=== PATIENT | female | born 1930 | race Caucasian/White ===

== ENCOUNTER 2019-11-24 22:10 | Inpatient (IN) | payer MEDICARE ==
[~2019-11-24] VITALS: Ht 167.6 cm; Wt 54.0 kg
--- NOTE | 2019-11-24 22:20 | NUR ---
Pt ABHAY mares from [facility]. Pt is here for medical clearance prior to MHU admission. She is on a 5150 hold for being DTS. Per reports, pt tried to overdose on pills and posted notes in her assisted living unit stating that she wants to . Pt is AO x 3-4. Verbally responsive and cooperative. Calm behavior. Denies suicidal and homicidal ideation at this time. She states that she only felt that way because her knee operation kept getting postponed and her knee pain gets worse. Respirations are even and unlabored. No signs of distress. Denies chest pain or any other discomfort at this time. Bed kept locked in place. Side rails up x 2. Removed belongings outside of room. Safety precautions maintained.
[2019-11-24] MEDS ORDERED: AMLODIPINE 5 MG TABLET ONE (22:27)
--- NOTE | 2019-11-24 22:29 | NUR ---
Called [facility] and spoke to Lizbeth staff member who states she has no medication on file.
[2019-11-24] MEDS ORDERED: AMLODIPINE 5 MG TABLET PO ONE (22:30)
--- NOTE | 2019-11-24 23:00 | NUR ---
Pt. admitted to MHU , under care of Dr. Vance/Shabbir Murphy DNP. Called for report at 2250 to Nerissa RN. Transported at this time via stretcher. Belonging List completed, and handed over to receiving RN. Warm handoff to MHU RNs.
--- NOTE | 2019-11-24 23:01 | NUR ---
ADMISSION NOTE: PATIENT IS A 89 YEAR OLD FEMALE BROUGHT IN ON 5150 FOR SI. UNDER THE CARE OF DR. MIRANDA AND DR. REBECA KOHLI. DX: IS MAJOR DEPRESSION. PER HOLD, PT STATED SHE WANTED TO "END IT ALL" BECAUSE THE PAIN IN HER KNEE. SHE ADMITTED TO TAKING MELATONIN TO SLEEP AND NOT WAKE UP. PT STATED THAT "SHE WANT TO ." AND PUT SUICIDE NOTES HANGING IN HER RESIDENCE THAT SAID" DO NOT TRY TO REVIVE ME." UPON FACE TO FACE EVALUATION PT SHOWS DEPRESSION, RESTLESS AND AGITATION BUT CAN FOLLOW COMMANDS. NO SUICIDAL IDEATION . PT DENIES THAT SHE'S SUICIDAL. PT WAS GIVEN ADVISEMENT, PATIENT'S RIGHT HANDBOOK GIVEN AND ORIENTED TO THE UNIT. FOOD PROVIDED. VITAL SIGNS WITHIN NORMAL LIMIT. SENIOR CARE ASSESSMENT DONE. MONITORING CLOSELY FOR SI. SUICIDAL PREVENTION AND STRATEGIES IN PLACE. SAFETY AND COMFORT PROVIDED.
[2019-11-24 23:05] VITALS: BP 174/73
[2019-11-24] MEDS ORDERED: hydrALAZINE HCL 25 MG TABLET PO ONE (23:45)
[2019-11-25] MEDS ORDERED: MAGNESIUM HYDROXIDE 30 ML LIQUID UDC PO PRN (00:15)
[2019-11-25] MEDS ORDERED: hydrALAZINE HCL 10 MG TABLET ONE (00:15)
[2019-11-25] MEDS ORDERED: BLOOD SUGAR DIAGNOSTIC 1 EACH STRIP VI ONE (00:15)
[2019-11-25] MEDS ORDERED: LORAZEPAM 1 MG TABLET PO PRN ×2 (00:15→14:30)
[2019-11-25 01:30] VITALS: BP 158/65
--- NOTE | 2019-11-25 06:04 | NUR ---
PT SLEPT 3 HOURS. PT IN NO ACUTE DISTRESS. PRESCRIBED MEDICATION GIVEN AND PT TOLERATED IT WELL. PT ANXIOUS, RESTLESS AND DEPRESSED BUT CAN FOLLOW COMMANDS. PT REFUSED TO HAVE HER BLOOD SUGAR CHECK AT 0015H. PT COMPLAINING OF ROOM TOO COLD. GAVE WARM BLANKET AND PUT THE TEMPERATURE WARM BUT STILL PT SAID ITS COLD. CHARGE NURSE AWARE. SAFETY AND COMFORT PROVIDED. ALL NEEDS ARE MET. WILL ENDORSE TO INCOMING NURSE FOR CONTINUITY OF CARE.
[2019-11-25 07:30] VITALS: BP 145/57
[2019-11-25] MEDS: ACETAMINOPHEN 325 MG TABLET PO PRN (10:09)
--- NOTE | 2019-11-25 10:25 | NUR ---
Social Work Initial Discharge Note: Patient currently resides at [facility] at [address] [place] [address] Dr Bharat Schultz, [place] [address] ([phone]), ([phone]), ([phone]). Per patient, she would want to return back to her [facility]. milk house worker spoke with afianmsanti nurse ([phone]) who stated that patient is welcomed back upon discharge. milk house worker will work with the pt and the MD regarding appropriate discharge planning. milk house worker will form a safe and proper discharge plan.
--- NOTE | 2019-11-25 10:25 | NUR ---
Social Work Family Contact: plate put in worker contacted patient's son Tommie ([phone]) was unavailable to gather collateral. This customs entry writer left a voicemail for Tommie to call back.
[2019-11-25] MEDS: IBUPROFEN 600 MG TABLET PO PRN (14:31)
[2019-11-25 16:00] VITALS: BP 155/69
--- NOTE | 2019-11-25 18:03 | NUR ---
Received patient this am in bed. Awake and alert, but disoriented. Explained the situation and the plan multiple times during the shift. Patient noted to be very forgetful. Asking the same questions over and over. Patient denies SI and does not know why she was brought here. A moderate amount of anxiety noted, which patient was medicated for with little effect. Patients B/P noted slightly elevate. SCRAP BALLER Ana was made aware early in the shift, but no orders received. Continuing to reorient patient, monitor for safety, provide reassurance and medicate if needed.
[2019-11-25 20:05] VITALS: BP 159/66
[2019-11-25] MEDS: ATORVASTATIN 40 MG TABLET PO SCH (20:16)
[2019-11-25] MEDS: MIRTAZAPINE 15 MG TABLET PO SCH (20:16)
[2019-11-26 07:30] VITALS: BP 122/64
--- NOTE | 2019-11-26 08:43 | NUR ---
Social Work Note: This commercial underwriter contacted [facility] and contacted Lizette who is the charge nurse ([phone]) and left a voicemail for Lizette to contact this commercial underwriter. This commercial underwriter was notified that Lizette contacted nursing staff to speak to social science research assistant to plan for discharge upon her discharge.
[2019-11-26] MEDS: ASPIRIN 81 MG TAB.CHEW PO SCH (09:32)
--- NOTE | 2019-11-26 11:29 | NUR ---
Social Work Family Contact: This policy writer contacted patient's son Tommie ([phone]) had left this policy writer a voicemail. This policy writer attempted to contact him back but was unavailable. This policy writer left a voicemail to call back soon.
--- NOTE | 2019-11-26 15:35 | NUR ---
Social Work Individual Therapy: steamtable worker met with patient for brief counseling. steamtable worker assessed for patient's level of suicidality. Patient denies SI. Patient reports that prior to admission, what she did was "stupid" and that she "regrets it". Patient reports that at her facility she has a strong support system and that she has "lots of friends" who she interacts with. Patient reports that even though the hospital has been helpful she misses her intermediate and wants to go back. This feature writer encouraged patient to interact with peers here and to participate in group. Patient was able to comprehend. This feature writer actively listened and provided emotional support. This feature writer also encouraged patient to alert either this feature writer or the nursing staff.
[2019-11-26 16:05] VITALS: BP 159/68
[2019-11-26] MEDS: MIRTAZAPINE 15 MG TABLET PO SCH (20:00)
[2019-11-26] MEDS: ATORVASTATIN 40 MG TABLET PO SCH (20:00)
[2019-11-26] MEDS: MAG HYDROX/AL HYDROX/SIMETH 30 ML LIQUID UDC PO PRN (20:00)
[2019-11-26 20:06] VITALS: BP 112/64
--- NOTE | 2019-11-27 01:15 | NUR ---
Patient received in room awake. patient is calm, cooperative and withdrawn. Patient complaint with medication. Patient denies SI will continue to monitor. Safe environment provided, frequent rounding, and clutter free environment. Bed in lowest position, bed locked,and bed alarm on while in bed.
[2019-11-27 07:30] VITALS: BP 156/58
[2019-11-27] MEDS: ASPIRIN 81 MG TAB.CHEW PO SCH (09:29)
[2019-11-27] MEDS: IBUPROFEN 600 MG TABLET PO PRN (09:29)
--- NOTE | 2019-11-27 14:30 | NUR ---
Gps/Press Tender Short Goods- Interacting fairly well with her roommate. Encouraged to attend her group therapy. Patient was able to talked to Dr Vance, questioning her discharge plan, will reassess patient behavior.
[2019-11-27 16:00] VITALS: BP 145/67
[2019-11-27] MEDS: ACETAMINOPHEN 325 MG TABLET PO PRN (17:10)
[2019-11-27 20:00] VITALS: BP 114/51
[2019-11-27] MEDS: ATORVASTATIN 40 MG TABLET PO SCH (20:24)
[2019-11-27] MEDS: MIRTAZAPINE 15 MG TABLET PO SCH (20:25)
[2019-11-27] MEDS: LORAZEPAM 0.5 MG TABLET PO PRN (20:57)
[2019-11-28 07:30] VITALS: BP 136/60
[2019-11-28] MEDS: ASPIRIN 81 MG TAB.CHEW PO SCH (09:22)
--- NOTE | 2019-11-28 15:37 | NUR ---
Social Work Individual Therapy: construction ironworker helper met with patient for brief counseling. construction ironworker helper assessed for patient's level of suicidality. Patient denies SI. Patient reports that she becomes sad "sometimes" because she stated that her daughter . Patient did not share more information in regard to her daughter. Patient became tearful when she began to share about her daughter. Patient reported that now her son Tommie has been involved in her care and has been supportive. This com writer encouraged patient to speak to his son daily. This com writer actively listened and provided emotional support.
[2019-11-28 15:48] VITALS: BP 163/69
[2019-11-28] MEDS: BISACODYL 10 MG SUPP.RECT RC PRN (17:05)
[2019-11-28 20:00] VITALS: BP 154/61
[2019-11-28] MEDS: ATORVASTATIN 40 MG TABLET PO SCH (20:40)
[2019-11-28] MEDS: MIRTAZAPINE 15 MG TABLET PO SCH (20:40)
[2019-11-28] MEDS: ZOLPIDEM 5 MG TABLET PO PRN (22:12)
[2019-11-29 07:30] VITALS: BP_SYST 108; BP_SYST 123; BP_DIAS 59; BP_DIAS 72
[2019-11-29] MEDS: ASPIRIN 81 MG TAB.CHEW PO SCH (08:21)
--- NOTE | 2019-11-29 13:40 | NUR ---
Gps/Steam Trap Worker- Making her needs known, pleasant affect, interacting with her roommate, denies pain no discomfort noted at this time. reviewed safety. Patient looking forward [facility] .
[2019-11-29 16:00] VITALS: BP 154/51
[2019-11-29] MEDS: ACETAMINOPHEN 325 MG TABLET PO PRN (16:10)
[2019-11-29] MEDS: ATORVASTATIN 40 MG TABLET PO SCH (20:46)
[2019-11-29] MEDS: MIRTAZAPINE 15 MG TABLET PO SCH (20:46)
[2019-11-29 21:32] VITALS: BP 148/66
--- NOTE | 2019-11-30 00:22 | NUR ---
RECEIVED PATIENT IN HER ROOM CHATTING WITH HER ROOMMATE.DENIES SI/HI.SHE IS MEDICATION COMPLIANT. SAFE ENVIRONMENT PROVIDED. VISUAL CHECKS MADE ON HER. WILL CONTINUE TO MONITOR.
[2019-11-30 07:30] VITALS: BP 151/70
[2019-11-30] MEDS: ASPIRIN 81 MG TAB.CHEW PO SCH (08:49)
[2019-11-30] MEDS: ACETAMINOPHEN 325 MG TABLET PO PRN (10:29)
[2019-11-30 16:00] VITALS: BP 124/58
--- NOTE | 2019-11-30 16:50 | NUR ---
Gps/Battery Engineer- Continue to make needs known, interacting well with her peers. Adequate relief from headache . Verbalized she is looking forward to going back to her apt. longterm .
[2019-11-30 20:00] VITALS: BP 131/56
[2019-11-30] MEDS: MIRTAZAPINE 15 MG TABLET PO SCH (20:59)
[2019-11-30] MEDS: ATORVASTATIN 40 MG TABLET PO SCH (20:59)
--- NOTE | 2019-12-01 00:08 | NUR ---
RECEIVED PATIENT IN ACTIVITY ROOM.DENIES SI/HI. SHE IS MEDICATION COMPLIANT BUT MILDLY SUSPICIOUS OF HER MEDICATION. SAFE ENVIRONMENT PROVIDED. VISUAL CHECKS MADE ON HER. WILL CONTINUE TO MONITOR.
--- NOTE | 2019-12-01 06:45 | NUR ---
SLEPT FOR APPROX 07:30 HOURS
[2019-12-01 07:30] VITALS: BP 129/58
[2019-12-01] MEDS: ASPIRIN 81 MG TAB.CHEW PO SCH (08:12)
--- NOTE | 2019-12-01 12:00 | NUR ---
Hearing: Social Work Note PC Hearing Notification: lasting floorworker contacted patient's son Tmomie, ([phone]) and notified patient's probable cause of hearing today. Addendum: 12/01/19 at 1615 by POLA CONTEH Social Work Note PC Hearing Notification: lasting floorworker contacted patient's son Tommie, ([phone]) and notified patient's probable cause of hearing today.
--- NOTE | 2019-12-01 13:53 | NUR ---
Social Work Coordination of Care: This contract technical writer spoke with Lizette galarza ([phone]) admin coordinator from [facility] and stated that they are reviewing patient's clinicals and will let this contract technical writer know when they are willing to accept patient back.
[2019-12-01 15:39] VITALS: BP 140/63
--- NOTE | 2019-12-01 17:43 | NUR ---
Patient denies SI and does not know why she was brought here. A moderate amount of anxiety noted, compliant with am medication . Continuing to reorient patient, monitor for safety, provide reassurance and medicate if needed
[2019-12-01] MEDS: LORAZEPAM 0.5 MG TABLET PO PRN (19:47)
[2019-12-01] MEDS: MAG HYDROX/AL HYDROX/SIMETH 30 ML LIQUID UDC PO PRN (19:47)
[2019-12-01 20:00] VITALS: BP 144/70
[2019-12-01] MEDS: MIRTAZAPINE 15 MG TABLET PO SCH (20:04)
[2019-12-01] MEDS: ATORVASTATIN 40 MG TABLET PO SCH (20:04)
[2019-12-01] MEDS: ZOLPIDEM 5 MG TABLET PO PRN (21:54)
[2019-12-02 07:30] VITALS: BP 167/49
[2019-12-02] MEDS: ASPIRIN 81 MG TAB.CHEW PO SCH (08:19)
--- NOTE | 2019-12-02 13:09 | NUR ---
Social Work Coordination of Care: This sba underwriter contacted Lizette Director ([phone]) and left a voicemail to confirm patient's discharge. This sba underwriter requested to call back.
--- NOTE | 2019-12-02 14:49 | NUR ---
Social Work Individual Therapy: switchboard wire worker helper met with patient for brief counseling. switchboard wire worker helper assessed for patient's level of suicidality. Patient denies SI. Patient reports that she no longer has suicidal thoughts. Patient expressed that "what she did was stupid and that she will never do it again". Patient reported that at her [place] [facility] she has plenty of support from her friends and her son Tommie. Patient reported that she is ready to go back home. This technical document writer actively listened and provided emotional support.
[2019-12-02 17:09] VITALS: BP 142/91
--- NOTE | 2019-12-02 17:15 | NUR ---
received patient A/o x4 ,compliant with all po medication ,ambulating well ,attended and participated in group activity.
--- NOTE | 2019-12-02 20:00 | NUR ---
Received patient walking in the hallway with a steady gait. A/Ox4. No distress noted. Requesting Tylenol to help her sleep tonight. Calm and cooperative.
[2019-12-02 20:17] VITALS: BP 162/97
[2019-12-02] MEDS: ATORVASTATIN 40 MG TABLET PO SCH (20:40)
[2019-12-02] MEDS: MIRTAZAPINE 15 MG TABLET PO SCH (20:40)
[2019-12-02] MEDS: ACETAMINOPHEN 325 MG TABLET PO PRN (20:40)
[2019-12-03 07:30] VITALS: BP 139/59
[2019-12-03] MEDS: ASPIRIN 81 MG TAB.CHEW PO SCH (08:41)
[2019-12-03] MEDS ORDERED: CLONIDINE HCL 0.1 MG TABLET PO PRN (09:00)
--- NOTE | 2019-12-03 09:44 | NUR ---
Social Work Family Contact: reed worker contacted patient's son Tommie ([phone]) who stated that he will grape picker patient at 10AM on 12/03.
[2019-12-03] MEDS: BISACODYL 10 MG SUPP.RECT RC PRN (13:46)
[2019-12-03 16:06] VITALS: BP 142/99
[2019-12-03 20:36] VITALS: BP 112/53
[2019-12-03] MEDS: ATORVASTATIN 40 MG TABLET PO SCH (20:47)
[2019-12-03] MEDS: MIRTAZAPINE 15 MG TABLET PO SCH (20:47)
[2019-12-04 07:57] VITALS: BP 167/76
--- NOTE | 2019-12-04 08:08 | NUR ---
Social Work Discharge Note: Patient will be discharged back to [address] Bharat Schultz, [place] [address]; ([phone]). Patients son Tommie ([phone]) will cherry picker operator patient at 10AM. disc pad knockout worker spoke with Arielledavid galarza, ) at the facility who states they are ready to accept the patient back today. Patient is aware and agreeable with discharge plans. Patient is alert and oriented x2, is unable to plan for self-care, but agrees to receiving care at the facility. Patient denies any suicidal or homicidal ideation. Patient will follow-up at the facility with Dr. Willis(Rubber Process Hand) and Dr. Mi (Psychiatrist) at [facility]. Patient was provided with outpatient mental health resources to [facility] Crisis Line , and the National Suicide Prevention Lifeline . Patient presents with euthymic mood and congruent affect.
[2019-12-04] MEDS: ASPIRIN 81 MG TAB.CHEW PO SCH (08:21)
[2019-12-04] MEDS: MAG HYDROX/AL HYDROX/SIMETH 30 ML LIQUID UDC PO PRN (09:17)
--- NOTE | 2019-12-04 09:24 | NUR ---
Gps/Pattern Drum Maker- Discharge planning in progress, patient to go back to [facility] Son moe to provide transportation. Reviewed diet, medications, prescriptions, skin care, safety emphasized, follow up with her Primary Medical Doctor Dr Mi(Psychiatrist), Dr Willis (Manager Social Responsibility) Verbalized understanding.Out patient mental Health resources was provided per SW.
--- NOTE | 2019-12-04 10:18 | NUR ---
Gps/Danielle Reilly(son) to machine pecan picker patient to transport home, educated re- meds. precriptions to be machine pecan picker from Pharmacy, Reviewed discharged instruction, verbalized understanding
--- NOTE | 2019-12-04 10:19 | NUR ---
Gps/Director Of Cath Lab- Discharged via private car accompanied by jackson Reilly. in good spirit, no complaints noted, all belongings given back to patient including emergency necklace.
== END 2019-12-04 10:15 | DRG 881 ==
LOC: ER 22:12 → GPS 22:55
PROVIDERS: ADMIT Psychiatry & Neurology Psychiatry; ATTEND Nurse Practitioner Acute Care
DX: F32.9 Major depressive disorder, single episode, unspecified (principal); F23 Brief psychotic disorder; R45.851 Suicidal ideations; Z96.641 Presence of right artificial hip joint; E78.5 Hyperlipidemia, unspecified; I10 Essential (primary) hypertension; M17.11 Unilateral primary osteoarthritis, right knee; F03.90 Unspecified dementia, unspecified severity, without behavioral disturbance, psychotic disturbance, mood disturbance, and anxiety; R73.03 Prediabetes
CPT/HCPCS: 36415; 71045; 93005; A4663